=== PATIENT | male | born 1965 | race Caucasian/White ===

== ENCOUNTER 2018-03-05 10:54 | Emergency (ER) | payer OTHER ==
[2018-03-05] MEDS ORDERED: TDAP ADULT 0.5 ML INJ (BOOSTRIX) IM ONE (11:20)
[2018-03-05] MEDS ORDERED: CEPHALEXIN 500 MG CAP PO ONE (11:20)
--- NOTE | 2018-03-05 11:34 | EDPHY ---
H & P Time Seen by Provider: 03/05/18 11:20 HPI/ROS: CHIEF COMPLAINT: Partial amputation left middle digit HISTORY OF PRESENT ILLNESS: 52-year-old male with out-of-date tetanus arrives via private vehicle complaining of possible partial amputation was left middle digit. He had rope wrapped around his finger and when the rope came under tension a detached the volar aspect of the tissue. He went to urgent care where they soaked tissue into saline solution and had him come to the emergency department PHYSICAL EXAM (Prior to examination, patient consented to physical exam, hands were washed and my usual and customary physical exam procedures followed) 1) GENERAL: Well-developed, well-nourished, alert and oriented. Appears to be in no acute distress. 2) HEAD: Normocephalic 3) HEENT: sclera anicteric 4) LUNGS: Breathing comfortably. 5) SKIN: Left left middle digit palmar aspect tissue amputation extending from the D IP distally along the palmar aspect only. He brought with him the piece of avulsed tissue. Total tissue loss length 3 cm 6) MUSCULOSKELETAL: FDP and FDS are intact. 7) NEUROLOGIC: Full sensation distally Smoking Status: Current every day smoker Constitutional: Initial Vital Signs Temperature (C) 36.8 C 03/05/18 11:17 Heart Rate 91 03/05/18 11:17 Respiratory Rate 16 03/05/18 11:17 Blood Pressure 151/90 H 03/05/18 11:17 O2 Sat (%) 96 03/05/18 11:17 O2 Delivery Mode Room Air Allergies/Adverse Reactions: No Known Allergies Allergy (Unverified 03/05/18 11:16) Home Medications: Medication Instructions Recorded Cephalexin [Keflex] 500 mg PO QID 10 Days cap 03/05/18 Hydrocodone/APAP 5/325 [[place] 1 tab PO Q6 PRN #10 tab 03/05/18 5/325 (RX)] MDM/Departure - MDM Procedures: Procedure: Laceration repair. I explained the indications, risks and benefits for both laceration repair and anesthetic administration. Verbal consent was obtained from the patient. The tissue avulsion on the left middle digit was anesthetized using 0.5% bupivicaine without epinephrine digital nerve block. After anesthetic administered the patient was observed for a period of time and had no apparent adverse effects. The wound was cleaned, prepped, draped in normal sterile fashion and explored to its base. No foreign body seen, no foreign bodies palpated. The avulsed tissue was placed over the open wound and reattached with 9 simple interrupted 5 O Prolene sutures. This will serve as a biologic bandage. The wound repair was complex. The procedure was performed by myself. Patient has been informed that scarring will occur, although efforts have been made to minimize this. Medications Given: Discontinued Medications Cephalexin HCl (Keflex) 500 mg PO EDNOW ONE PRN Reason: Protocol Stop: 03/05/18 11:21 Last Admin: 03/05/18 11:36 Dose: 500 mg Diphtheria/Tetanus/Acell Pertussis (Boostrix) 0.5 ml IM .ONCE ONE Stop: 03/05/18 11:21 Last Admin: 03/05/18 11:34 Dose: 0.5 ml ED Course/Re-evaluation: Patient has been informed that the long-term viability of this tissue is incompletely clear at this time in the importance of hand surgery follow-up has been stressed on numerous instances. I have consulted with on-call hand surgeon . Patient's tetanus has been updated, started on Keflex, will follow up with Dr. Naga Handy 12:55 p.m.: Dr. Naga Handy in the emergency department to evaluate the patient. He agrees with plan of recheck chin tissue to serve as a biologic bandage. Today is Monday. He would like to see the patient in office on . Patient feels comfortable with this plan. I believe him to have decision-making capacity. - Depart Disposition: Home, Routine, Self-Care Clinical Impression: Tissue avulsion left middle finger Condition: Good Instructions: Skin Avulsion (ED) Additional Instructions: Return to the ER if you develop redness, swelling, discharge, warmth to the wound, red streaks going up your arm or any other symptoms that concern you. Stand Alone Forms: Work Comp Follow Up, Work Excuse Prescriptions: Cephalexin [Keflex] 500 mg PO QID 10 Days cap Hydrocodone/APAP 5/325 [[place] 5/325 (RX)] 1 tab PO Q6 PRN #10 tab PRN Reason: Pain, Severe Referrals: Naga Handy MD [Medical Doctor] - 03/08/18
[2018-03-05 13:32] VITALS: BP 131/72
== END 2018-03-05 13:31 | disposition home or self-care (01) ==
PROC: 0HQGXZZ Repair Left Hand Skin, External Approach (ICD-10-PCS; principal; 2018-03-05)
DX: S61.303A Unspecified open wound of left middle finger with damage to nail, initial encounter (principal); F17.200 Nicotine dependence, unspecified, uncomplicated; Z23 Encounter for immunization; X58.XXXA Exposure to other specified factors, initial encounter
CPT/HCPCS: L3925